=== PATIENT | female | born 1940 | race Caucasian/White ===

== ENCOUNTER 2016-12-11 10:14 | Day surgery (SDC) | payer MEDICARE, MEDICAID ==
[~2016-12-11] VITALS: Ht 157.5 cm; Wt 64.5 kg
[2016-12-11] VITALS (9 sets, daily range): BP systolic 107–146; BP diastolic 51–79; PULSE 60–82; TEMP 97.8–98.7
[~2016-12-11 10:14] MED LIST: ARICEPT10 MG PO; ASPIRIN E.C. 8181 MG PO; COZAAR 50MG50 MG/TAB PO; DESYREL 50MG50 MG PO; EPITOL; HYDROCODONE/APAP; IMDUR 60MG60 MG/TAB PO; K-TAB10 PO; LASIX 20MG TABL20 MG PO; LEXAPRO 10MG10 MG PO; LEXAPRO 5MG5 MG PO; LOPID 600M600 MG/TAB PO; LOPRESSOR 225 MG/TAB PO; LOPRESSOR100 MG PO; MAG-OX 400400 MG/TAB PO; NORCO 325 MG-101 TAB PO; PAXIL 20MG20 MG PO; PEPCID 20MG TAB20 MG PO; RESTORIL 1515 MG/CAP PO; RESTORIL30 MG PO; SEE LIST; SEROQUEL50 MG PO; SYNTHROID 0.0.025 MG; SYNTHROID 0.10.15 MG PO; TEGRETOL X200 MG/TA1 PO; TOFRANIL 25MG T25 MG PO; TRILEPTAL 300M300 MG PO; TRILEPTAL SU60 MG/ML PO; UNABLE; VESICARE 5MG5 MG PO; ZESTRIL 5MG5 MG PO; ZOCOR 20MG20 MG PO
[2016-12-11 11:06] LABS: MEAN CELL VOLUME 95 fl (80.0-100.0); MEAN CORPUSCULAR HGB CONC 33 g/dl (33.0-37.0); MEAN PLATELET VOLUME 10.2 fl (7.4-10.4); PLATELET COUNT 143 K/mm3 (130-400); RED BLOOD COUNT 3.09 M/mm3 (4.10-5.30); REDCELL DISTRIBUTION WIDTH-CV 13.3 % (11.5-14.5)
[2016-12-11 11:08] LABS: HEMATOCRIT 29.4 % (37.0-47.0); HEMOGLOBIN 9.7 g/dl (12.5-16.0); MEAN CORPUSCULAR HEMOGLOBIN 31 pg (27.0-31.0)
[2016-12-11 11:11] LABS: PROTHROMBIN TIME 11.4 SECONDS (9.7-12.8)
[2016-12-11] MEDS ORDERED: PRINIVIL5 MG PO (11:17)
[2016-12-11] MEDS ORDERED: LIPITOR 40MG TA40 MG PO (11:18)
[2016-12-11] MEDS ORDERED: PLAVIX 75MG TAB75 MG PO (11:18)
[2016-12-11 11:19] LABS: CALCIUM 9.2 mg/dL (8.4-10.2); CREATININE, serum 1.66 mg/dL (0.52-1.25); POTASSIUM 3.5 mmol/L (3.4-5.0)
[2016-12-11] MEDS ORDERED: SYNTHROID0.2 MG/TAB PO (11:20)
[2016-12-11] MEDS ORDERED: LASIX 20MG TABL20 MG PO (11:20)
[2016-12-11] MEDS ORDERED: MAG-OX 400400 MG/TAB PO (11:21)
[2016-12-11] MEDS ORDERED: ASPIRIN E.C. 8181 MG PO (11:22)
[2016-12-11] MEDS ORDERED: TRILEPTAL 300M300 MG PO (16:55)
[2016-12-12 03:24] VITALS: BP 128/53; PULSE 61; TEMP 98.3
[2016-12-12 07:19] VITALS: BP 121/52; BP 96/54; PULSE 76; PULSE 90; TEMP 98.3
[2016-12-12 11:02] VITALS: BP 101/45; PULSE 93; TEMP 98
[2016-12-12] MEDS ORDERED: CEPHALEXIN500 M1 PO (12:09)
== END 2016-12-12 13:45 | disposition home or self-care (01) ==
LOC: EUO 10:14 → PEDS 15:26 → EUO 12-12 13:45
PROVIDERS: Internal Medicine Cardiovascular Disease
DX: I25.5 Ischemic cardiomyopathy (principal); I25.10 Atherosclerotic heart disease of native coronary artery without angina pectoris; I51.7 Cardiomegaly; Z95.5 Presence of coronary angioplasty implant and graft; E78.5 Hyperlipidemia, unspecified; I10 Essential (primary) hypertension; K21.9 Gastro-esophageal reflux disease without esophagitis; E03.9 Hypothyroidism, unspecified; I27.2 Other secondary pulmonary hypertension; I34.0 Nonrheumatic mitral (valve) insufficiency; Z79.01 Long term (current) use of anticoagulants; R56.9 Unspecified convulsions
CPT/HCPCS: OP; C1721; C1769; C1894; C1895; J0282; J0690; J2250; J3010; J7030; Q9967

== ENCOUNTER 2020-07-31 19:38 | Emergency (ER) | payer MEDICARE, MEDICAID ==
[~2020-07-31] VITALS: Ht 170.2 cm; Wt 65.9 kg
[2020-07-31 19:38] VITALS: TEMP 98.6
[~2020-07-31 19:38] MED LIST changes: +CEPHALEXIN500 M1 PO; +LIPITOR 40MG TA40 MG PO; +PLAVIX 75MG TAB75 MG PO; +PRINIVIL5 MG PO; +SYNTHROID0.2 MG/TAB PO
[2020-07-31 20:11] LABS: BASO # 0.1 (0.0-0.2); BASO % 0.8 % (0.0-2.0); EOS # 0.1 (0.0-0.7); EOS % 0.8 % (0-4.0); HEMATOCRIT 33.7 % (37.0-47.0); HEMOGLOBIN 10.4 g/dl (12.5-16.0); LYMPH # 0.7 (1.2-3.4); LYMPH % 7.7 % (20.0-51.0); MEAN CELL VOLUME 87 fl (80.0-100.0); MEAN CORPUSCULAR HEMOGLOBIN 27 pg (27.0-31.0); MEAN CORPUSCULAR HGB CONC 31 g/dl (33.0-37.0); MEAN PLATELET VOLUME 12.2 fl (7.4-10.4); MONO # 0.8 (0.1-0.6); MONO % 9.4 % (1.7-9.3); PLATELET COUNT 302 K/mm3 (130-400); RED BLOOD COUNT 3.87 M/mm3 (4.10-5.30); REDCELL DISTRIBUTION WIDTH-CV 15.7 % (11.5-14.5)
[2020-07-31 20:21] LABS: ALBUMIN 4.8 gm/dL (3.5-5.0); BILIRUBIN,TOTAL 0.7 mg/dL (0.0-1.0); CALCIUM 9.5 mg/dL (8.4-10.2); CREATININE, serum 1.26 (0.52-1.25); POTASSIUM 3.8 mmol/L (3.4-5.0); TOTAL PROTEIN 8.3 gm/dL (6.4-8.2)
[2020-07-31 20:50] LABS: PH 6 (5-8); SQUAMOUS EPITHELIAL 0-2 /hpf; URINE APPEARANCE Hazy; URINE BACTERIA Rare /hpf; URINE BILIRUBIN Negative (NEGATIVE); URINE BLOOD Negative (NEGATIVE); URINE COLOR Yellow; URINE GLUCOSE Negative (NEGATIVE); URINE KETONE Negative (NEGATIVE); URINE LEUKOCYTE ESTERASE Trace (NEGATIVE); URINE NITRATE Positive (NEGATIVE); URINE PROTEIN(semi-quant) 1+ (NEGATIVE); URINE RBC 0-2 /hpf; URINE UROBILINOGEN Negative (NEGATIVE)
[2020-07-31 21:19] LABS: COLLECTION METHOD CATHETER
[2020-07-31] MEDS ORDERED: TYLENOL 325MG325 MG PO (23:30)
[2020-07-31] MEDS ORDERED: OMNICEF 300MG300 MG PO (23:30)
[2020-08-01] VITALS: BP 136/78; PULSE 68
[2020-08-01] MEDS ORDERED: ROXICODONE 55 MG/TAB PO (00:06)
== END 2020-08-01 00:30 | disposition home or self-care (01) ==
LOC: COL.ER 19:38
PROVIDERS: Emergency Medicine
DX: S62.102A Fracture of unspecified carpal bone, left wrist, initial encounter for closed fracture (principal); S00.83XA Contusion of other part of head, initial encounter; Z95.5 Presence of coronary angioplasty implant and graft; Z95.0 Presence of cardiac pacemaker; Z90.49 Acquired absence of other specified parts of digestive tract; Z79.02 Long term (current) use of antithrombotics/antiplatelets; Z79.82 Long term (current) use of aspirin; Z79.890 Hormone replacement therapy; W01.198A Fall on same level from slipping, tripping and stumbling with subsequent striking against other object, initial encounter; Y93.01 Activity, walking, marching and hiking; Y92.090 Kitchen in other non-institutional residence as the place of occurrence of the external cause
CPT/HCPCS: J0696; J2250; J3010